=== PATIENT | male | born 1955 | race Caucasian/White ===

== ENCOUNTER → 2018-12-18 15:47 | Outpatient (BNVA) | payer OTHER, SELFPAY | PROVIDERS: Visit Provider Surgery | DX: L72.9 Follicular cyst of the skin and subcutaneous tissue, unspecified (principal); Z48.817 Encounter for surgical aftercare following surgery on the skin and subcutaneous tissue ==

== ENCOUNTER → 2019-01-15 08:48 | Outpatient (BNVA) | payer OTHER, SELFPAY | PROVIDERS: PCP Nurse Practitioner Family; Referring Provider Nurse Practitioner Family; Visit Provider Surgery | DX: L72.3 Sebaceous cyst (principal) | CPT/HCPCS: 99212 ==

== ENCOUNTER 2019-12-31 21:59 | Outpatient (REF) | payer OTHER, SELFPAY ==
[2019-12-31 19:31] LABS: Calculated LDL 159 mg/dL (<100); Cholesterol 222 mg/dL (<200); HDL Cholesterol 35 mg/dL (40-60); Triglyceride 144 mg/dL (<150)
== END 2019-12-31 22:19 ==
LOC: NCHCN 21:59
PROVIDERS: PCP Nurse Practitioner Family; Visit Provider Nurse Practitioner Family
DX: E78.5 Hyperlipidemia, unspecified (principal)
CPT/HCPCS: 80061

== ENCOUNTER 2022-01-04 15:19 | Outpatient (REF) | payer MEDICARE, SELFPAY ==
[2022-01-04 15:16] LABS: ALT 21 U/L (16-63); AST 21 U/L (15-37); Alkaline Phosphatase 57 U/L (46-116); Anion Gap 8.7 mmol/L (3-11); BUN 21 mg/dL (7-18); Bilirubin, Total 0.9 mg/dL (0.2-1.0); CO2 26.3 mmol/L (21.0-32.0); CREATININE 1.3 mg/dL (0.70-1.30); Calculated LDL 160 mg/dL (<100); Chloride 104 mmol/L (98-107); Cholesterol 229 mg/dL (<200); Glucose 105 mg/dL (74-106); HDL Cholesterol 40 mg/dL (40-60); Potassium 4.7 mmol/L (3.5-5.1); Sodium 139 mmol/L (136-145); Total Protein 6.9 g/dL (6.4-8.2); Triglyceride 146 mg/dL (<150)
== END 2022-01-04 15:20 | disposition home or self-care (01) ==
LOC: NCHCN 15:19
PROVIDERS: PCP Nurse Practitioner Family; Visit Provider Nurse Practitioner Family
DX: E78.5 Hyperlipidemia, unspecified (principal)
CPT/HCPCS: 80053; 80061

== ENCOUNTER 2024-04-25 01:51 | Outpatient (CLI) | payer MEDICARE, SELFPAY ==
--- NOTE | 2024-04-25 13:16 | DI.RAD_ITS ---
Exam(s) XR FOOT LT COMPLETE EXAM: XR FOOT LT COMPLETE CLINICAL HISTORY: Left foot pain,m79.672. TECHNIQUE: 2D digital imaging was performed. Three views. COMPARISON: No exams were available for comparison FINDINGS: BONES: No acute fracture is present. No bony destructive lesion is seen. JOINTS: No dislocation present. Minimal degenerative changes 1st MTP joint. Hammertoe deformities. Plantar arch is maintained. SOFT TISSUE: Normal. IMPRESSION: Minimal degenerative changes and hammertoe deformities. DATA REPOSITORY: RADIATION DOSE DELIVERED:
== END 2024-04-25 02:11 ==
PROVIDERS: Visit Provider Podiatrist
DX: M79.672 Pain in left foot (principal)
CPT/HCPCS: 73630

== ENCOUNTER → 2024-09-05 08:17 | Outpatient (BNVA) | payer MEDICARE, SELFPAY | PROVIDERS: PCP Family Medicine; Referring Provider Family Medicine; Visit Provider Podiatrist | DX: M20.42 Other hammer toe(s) (acquired), left foot (principal); B35.1 Tinea unguium | CPT/HCPCS: 99213 ==

== ENCOUNTER → 2024-12-19 13:53 | Outpatient (BNVA) | payer MEDICARE, SELFPAY | PROVIDERS: PCP Family Medicine; Referring Provider Family Medicine; Visit Provider Surgery | DX: L72.3 Sebaceous cyst (principal); L73.8 Other specified follicular disorders | CPT/HCPCS: 99214 ==

== ENCOUNTER 2024-12-24 07:25 | Day surgery (SDC) | payer MEDICARE, SELFPAY ==
[2024-12-24] VITALS (15 sets, daily range): BP systolic 109–167; BP diastolic 65–78; PULSE 43–80; RESP 16; TEMP 36–36.4; O2SAT 95–100; BMI 33.0
[2024-12-24] MEDS: Lactated Ringers 1,000 ML 80 ML IV (07:55)
--- NOTE | 2024-12-24 10:29 | W.ANESPRE ---
General Info Date of Service Date Performed: 12/24/24 Height: 5 ft 9 in Weight: 101.7 kg Body Mass Index (BMI): 33.0 Surgical Procedure: Operation Date: 12/24/24 09:40 Proposed Procedure Side Surgeon p Excision Posterior Neck Skin Cyst Christal Sharma MD Meds Allergies and Home Medications Allergies Allergy/AdvReac Type Severity Reaction Status Date / Time No Known Allergies Allergy Verified 12/21/24 13:14 Home Medication ?Medication ?Instructions ?Recorded naproxen sodium 220 mg tablet 220 mg PO BID PRN 12/14/18 (Aleve) ketoconazole 2 % topical cream 1 applic topical DAILY #120 grams 04/25/24 Current Visit Medications: Current Medications Generic Name Dose Route Start Last Admin Trade Name Freq PRN Reason Stop Dose Admin Ringer's Solution 1,000 mls @ 80 mls/hr 12/24/24 06:00 12/24/24 07:55 IV 12/24/24 23:59 80 mls/hr INFUSION HOLLAND Administration IV Miscellaneous Supplies 1 each 12/24/24 06:00 Iv Access IV 12/24/24 23:59 DIRECTED HOLLAND Sodium Chloride 0 ml 12/24/24 06:00 Normal Saline Flush 10 Ml Syr IV 12/24/24 23:59 PRN PRN Sodium Chloride 0 ml 12/24/24 06:00 Normal Saline 10 Ml Vial IJ 12/24/24 23:59 DIRECTED PRN Sterile Water 0 ml 12/24/24 06:00 Water,Injection,Sterile 10 Ml Vial IJ 12/24/24 23:59 DIRECTED PRN PFSH Active Problems Active Problems: Problem Status Onset Code Sebaceous cyst Acute L72.3 Sebaceous hyperplasia Acute L73.8 Onychomycosis Acute B35.1 Hammertoe of left foot Acute M20.42 Presence of external hearing aid Acute Z97.4 Pain in knee joint Acute M25.569 Paresthesia Acute R20.2 Hernia of anterior abdominal wall Acute K43.9 Hearing loss Acute H91.90 Obesity with body mass index 30 or greater Acute E66.9 Hyperlipidemia Acute E78.5 Infected sebaceous cyst Acute L72.3, L08.9 Surgical History Surgical History H/O wrist surgery Steel plate fingers reattached in 76, right hand Hx of appendectomy Tobacco Smoking/Tobacco Use Status: Never Passive smoking exposure: No Second hand exposure: No Alcohol Alcohol Intake: current Alcohol intake frequency: 0-2 drinks per day Alcohol type: beer Substance Use Substance use: Never Substance use type: does not use Vital Signs and Lab Results Vital Signs Most Recent Vital Signs in EMR: Most Recent Vital Signs Temp Pulse Resp BP Pulse Ox 36 C L 61 16 109/68 97 12/24/24 07:30 12/24/24 07:30 12/24/24 07:30 12/24/24 07:30 12/24/24 07:30 Anesthesia Assessment and Plan Anesthesia History Personal History: No History of Anesthesia Complications Family History: No Family History of Anesthesia Complications Exercise Tolerance Exercise Tolerance: Metabolic Equivalents>4 Pertinent Negatives Pertinent Negatives: No Symptoms of GERD Cardiac & Pulmonary Exam Cardiac Exam: Normal S1/S2 Heart Sounds Pulmonary Exam: Clear Bilateral Breath Sounds Implantable Cardiac Device Does patient have a Pacemaker or an ICD?: No Airway Exam Known Difficult Airway: No Mallampati Class: 2 Mouth Opening: Normal (> 3cm) Thyromental Distance: Greater than 3 cm Neck Range of Motion: Full ROM Neck Circumference: Normal Teeth Condition: Normal Dentition ASA Classification ASA Score: ASA 2 Emergency Case?: No NPO Status NPO Status: NPO Clears >2 hours, Solids >8 hours Anesthesia Plan Resuscitation Status: Full Code Anesthesia Technique: General Anesthesia Airway Planned: Endotracheal Tube Monitors Used: Standard Monitors
--- NOTE | 2024-12-24 11:28 | SKI_PTH ---
PATIENT: Leroy Greer LOC: [facility] U#:[id number] AGE/SX: 69/M ROOM: RE12/24/[address]: Christal Sharma MD : [id number] BED: DIS: 12/24/2024 SPEC #: [id number] RECD: 12/24/24 14:08 STATUS: CINDY REClaire #: [id number] VERONICA: 12/24/24 11:[address]: Christal Sharma DEPT: Surgical Specimen RECD BY: Laura Russell ENTERED: 12/24/24 14:09 SP TYPE: STEPHANIE BUTLER DR: Darius Holliday DO Tissues: 1 - SKIN CYST/TAG/DEBRIDEMENT Procedures: GROSS AND MICRO LEVEL 3 Comments: [id number]
[2024-12-24] MEDS: Bupivacaine 0.5% Pres-Free W/EPI 30 ML VIAL (11:45)
--- NOTE | 2024-12-24 11:52 | W.PM.DSUDISC ---
Date of service: 12/24/24 Discharge Plan Disposition Patient Disposition: Home Condition: Stable Discharge Details Attending Provider: Christal Sharma Primary Care Provider: Darius Holliday Recommendations for Follow Up Recommended tests to be ordered by follow up provider: None required, surgeon to follow up on incision and post op recovery Home Meds and New Rx's Prescriptions: No Action naproxen sodium [Aleve] 220 mg tablet 220 mg PO BID PRN ketoconazole 2 % cream 1 applic topical DAILY Qty: 120 6RF Rx Instructions: Apply to toenails once daily Discharge Instructions Additional Instructions: Shower 12/26/24. Wash gently over steristrips with soapy hands. Rinse, pat dry. Do not peel strips or submerge under water (no bathtub or pool). No need to place an outer bandage unless you want to to keep it clean and dry. Ok to do normal activities of daily life. Avoid movements that stretch the skin open. Avoid activities that are particularly painful on the incision. Activity:: see above Remove Dressings/Wound Care:: Do Not Remove Shower/Bathe:: 48 hours Diet:: As Tolerated Discharge Orders Discharge Orders: Discharge Order (Routine); Ordered 12/24/24 Ordered By: Christal Sharma
--- NOTE | 2024-12-24 11:55 | W.PM.OP ---
Operative Note Operative Note Refer to Anesthesia Record Procedure Description: Preoperative diagnosis: Sebaceous cyst of posterior neck Postoperative diagnosis: Sebaceous cyst of posterior neck Procedure: Excision of sebaceous cyst from posterior neck Surgeon: Christal Sharma MD Printing Plate Setter: BHAVIK Hancock Anesthesia: GETA + local EBL 10mL Specimen: Posterior neck skin cyst Complications: None Procedure Description: This is a 69-year-old male who has sebaceous hyperplasia of the posterior neck. He has had multiple prior cyst excisions from this area and has thickening and scar formation. He has a particularly symptomatic cyst in the base of the right neck. Excision is indicated. The cyst size is 3 cm round. We discussed the procedure risks, benefits, alternatives, and expectations. All of the patient's questions were answered to their satisfaction. Informed consent was obtained and the patient was transferred to the operating room. He was placed supine on the operating table. SCDs were placed and all pressure points were padded appropriately. General anesthesia was induced. He was then moved to a prone position and all pressure points were padded appropriately. The posterior neck was clipped prepped and draped in the usual sterile fashion. Timeout was performed. Local anesthetic was infiltrated into the skin and subcutaneous tissues of the posterior neck. A 3 cm palpable cyst in the base of the right neck was observed. The skin overlying the cyst was marked with an ellipse. An incision was made in the skin and the incision carried down to the cyst. The cyst was then sharply from the subcutaneous fat. There was heavy scarring and evidence of prior inflammation though no evidence of current infection was seen. The cyst wall ruptured and contamination occurred during the removal process but the contamination was controlled. The cyst was removed from the base of the neck using cautery. The area was irrigated and dried. Hemostasis was achieved with point cautery. The subcutaneous fat was reapproximated using interrupted 3-0 Vicryl sutures. The skin was then closed with simple interrupted 4-0 Monocryl subcuticular stitches. The incision was washed and dried and Steri-Strips applied. The patient tolerated the procedure well. She extubated in the operating room and transferred to the recovery room in stable condition. There were no complications Date of Procedure: 12/24/24
--- NOTE | 2024-12-24 13:01 | W.ANESPOSTOP ---
Postoperative Evaluation Date, Time and Location Date Performed: 12/24/24 Time Performed: 13:01 Patient Location: Day Surgery Unit Vital Signs Most Recent Imported Vital Signs: Most Recent Vital Signs Temp Pulse Resp BP Pulse Ox 36.3 C L 66 16 115/65 95 12/24/24 12:39 12/24/24 12:36 12/24/24 07:30 12/24/24 12:36 12/24/24 12:36 Pain Score Most Recent Pain Score: Most Recent Pain Score Pain Level 0 12/24/24 12:39 Assessment Mental Status: Awake (Alert & Oriented to Patient Baseline) Airway and Respiratory Function: Patent airway with normal (patient baseline) respiratory exam Cardiovascular Function: Hemodynamically Stable Hydration Status: Adequately Hydrated Nausea & Vomiting: No Nausea or Vomiting Pain: Pt. Denies Any Pain Peripheral Nerve Block: Patient did not receive a nerve block
== END 2024-12-24 14:00 | disposition home or self-care (01) ==
PROVIDERS: PCP Family Medicine; Visit Provider Surgery
PROC: (CPT 11423; principal; 2024-12-24 09:30)
DX: L72.3 Sebaceous cyst (principal); L73.8 Other specified follicular disorders; E66.9 Obesity, unspecified; E78.5 Hyperlipidemia, unspecified
CPT/HCPCS: 11423; 12042; 88304; J0690; J1100; J2003; J2371; J2405; J2704; J3010

== ENCOUNTER → 2025-01-09 09:33 | Outpatient (BNVA) | payer MEDICARE, SELFPAY | PROVIDERS: PCP Family Medicine; Referring Provider Family Medicine; Visit Provider Surgery | DX: Z09 Encounter for follow-up examination after completed treatment for conditions other than malignant neoplasm (principal); L72.3 Sebaceous cyst | CPT/HCPCS: 99024 ==

== ENCOUNTER → 2025-01-23 10:37 | Outpatient (BNVA) | payer MEDICARE, SELFPAY | PROVIDERS: PCP Family Medicine; Referring Provider Family Medicine; Visit Provider Surgery | DX: L72.3 Sebaceous cyst (principal) | CPT/HCPCS: 99213 ==

== ENCOUNTER 2025-04-30 01:44 | Outpatient (CLI) | payer MEDICARE, SELFPAY ==
[2025-04-30 08:10] LABS: ALT 20 U/L (10-49); AST 22 U/L (<34); Albumin 4.5 g/dL (3.4-5.0); Alkaline Phosphatase 50 U/L (46-116); Anion Gap 8 mmol/L (3-11); BUN 15 mg/dL (9-23); Bilirubin, Total 1.00 mg/dL (0.2-1.2); CO2 30.0 mmol/L (20.0-31.0); Calcium 9.3 mg/dL (8.3-10.6); Chloride 104 mmol/L (98-107); Cholesterol 204 mg/dL (<200); Glucose 99 mg/dL (74-106); HDL Cholesterol 39 mg/dL (>40); Potassium 4.4 mmol/L (3.5-5.1); Sodium 142 mmol/L (136-145); Total Protein 6.9 g/dL (5.7-8.2)
== END 2025-04-30 01:45 | disposition home or self-care (01) ==
LOC: LBO 01:44
PROVIDERS: PCP Family Medicine; Referring Provider Family Medicine; Visit Provider Family Medicine
DX: E78.5 Hyperlipidemia, unspecified (principal)
CPT/HCPCS: 36415; 80053; 80061